=== PATIENT | female | born 1975 | race Caucasian/White ===

== ENCOUNTER 2021-06-02 00:51 | Day surgery (SDC) | payer OTHER, SELFPAY ==
[2021-05-19 09:23] VITALS: BMI 23.4
--- NOTE | 2021-06-02 11:05 | WPDGICN ---
Assessment and Plan Assessment and plan (1) Encounter for screening colonoscopy: Code(s): Z12.11 - Encounter for screening for malignant neoplasm of colon Status: Acute Assessment and Plan: Patient presents for screening colonoscopy. She appears to be at average risk for colon polyps. Further recommendations will be given after endoscopy. GI Consult Note Consult date/time: 06/02/21 11:05 HPI: Aliza Tena is a 45 year old female Presents for screening colonoscopy. Patient reports that her current weight appetite bowel movements are normal. Patient denies abdominal pain. She has had no bleeding. Family history is noncontributory. Review of Systems Review of Systems: All systems reviewed & are unremarkable except as noted in HPI and below PMFSH Social History Social History Smoking status: Never smoker Alcohol intake: current Alcohol use details: socially Substance use: never Substance use type: does not use Living arrangements: with family Spiritual care concerns: No Meds Home Medications and Allergies Home Medications Medication Instructions Recorded Confirmed Type doxycycline hyclate 50 mg PO DAILY 05/19/21 05/19/21 History Allergies Allergy/AdvReac Type Severity Reaction Status Date / Time No Known Allergies Allergy Mild Verified 05/19/21 09:24 Exam Narrative: Physical exam reveals patient be alert. Vital signs stable. HEENT exam is unremarkable. Patient is anicteric. Lungs are clear to auscultation and percussion. Heart is without murmur or extra sounds. Abdominal exam bowel sounds are present soft nontender with no organomegaly. Digital external rectal exam is normal.
[2021-06-02 11:11] VITALS: BP 113/82; PULSE 60; RESP 18; TEMP 36.6; O2SAT 100
[2021-06-02] MEDS: LACTATED RINGERS 1,000 ML 150 ML IV CONT (11:13)
--- NOTE | 2021-06-02 11:16 | WPDANESEPPF ---
Anes - Initial Pre Proc Eval Procedure: Operation Date: 06/02/21 12:45 Proposed Procedures p Screening Colonoscopy - Yahir Asif MD Date/Time: 06/02/21 11:16 Surgeon: Yahir Asif MD Pre Op Diagnosis: neoplasm screening Patient Data Age: 45 Gender: F Height: 1.63 m Weight: 61 kg Last Vital Signs Temp 36.6 C 06/02/21 11:11 Pulse 60 06/02/21 11:11 Resp 18 06/02/21 11:11 BP 113/82 06/02/21 11:11 Pulse Ox 100 06/02/21 11:11 Allergies Allergy/AdvReac Type Severity Reaction Status Date / Time No Known Allergies Allergy Mild Verified 06/02/21 11:10 Home Medications Medication Instructions Recorded Confirmed Type doxycycline hyclate 50 mg PO DAILY 05/19/21 06/02/21 History Patient hx anesthesia problems: none Family hx anesthesia problems: none Results Review: All pre-operative results and documents have been reviewed as part of the pre-operative evaluation. [facility], [facility] Social History Social History Smoking status: Never smoker Alcohol intake: current Alcohol use details: socially Substance use: never Substance use type: does not use Living arrangements: with family Spiritual care concerns: No Anes - Eval Final PreProcedure Day of Procedure 06/02/21 11:16 Patient weight: normal Heart: regular rate and rhythm Lungs: clear to auscultation and normal air movement Airway: Mallampati scale class II Neurological: alert and oriented Last oral intake: >/= 8 hours ASA classification: I Emergent: no Anesthetic plan: proceed Anesthesia type and monitoring: general GIVS Results Review: All pre-operative results and documents have been reviewed as part of the pre-operative evaluation. Informed Consent: The patient's anesthetic plan and its attendant risks and benefits were discussed with the patient/family/POA. Questions were solicited and answers provided to the satisfaction of the patient/family/POA.
[2021-06-02 11:52] VITALS: BP 100/65; PULSE 63; RESP 21; O2SAT 100
[2021-06-02 12:02] VITALS: BP 110/74; PULSE 52; RESP 19; O2SAT 100
[2021-06-02 12:12] VITALS: BP 120/81; PULSE 48; RESP 16; O2SAT 100
== END 2021-06-02 12:19 | disposition home or self-care (01) ==
PROVIDERS: PCP Family Medicine; Visit Provider Internal Medicine Gastroenterology
PROC: 0DJD8ZZ Inspection of Lower Intestinal Tract, Via Natural or Artificial Opening Endoscopic (ICD-10-PCS; CPT 45378; principal; 2021-06-02 12:45)
DX: Z12.11 Encounter for screening for malignant neoplasm of colon (principal); K64.8 Other hemorrhoids; D12.5 Benign neoplasm of sigmoid colon
CPT/HCPCS: 45385; 88305; J2001; J2704; J7120